=== PATIENT | male | born 1960 | race African-American/Black ===

== ENCOUNTER 2023-04-11 10:43 | Observation (INO) ==
--- NOTE | 2023-04-08 12:41 | Anesthesiology Consultation ---
Date of Service April 08, 2023 Assessment & Plan (1) Encounter for pre-operative examination: Chart Review Chart Review: Acceptable Risk for Surgery (pending anestehsia evaluation stat DOS and anesthesiologist review of unconfirmed EKG ) and Patient NOT seen in Pre Admission Testing - Discussed case with Dr. Tan and Dr. Levine- due to patient residing in [facility]- he will need re-assessed and evaluated DOS to see if he can proceed with surgery as planned (hx of chest pain with presumed negative stress test 12/2021) (Surgeon's office informed) - Check BSG AM DOS -COVID screening: Per PAT nursing assessment on 04/08/23. Pt resides at [facility]. No known COVID-19 positive contacts or current COVID-19 related symptoms. Travel screen negative. Preop Covid testing 04/05/23= negative. Covid test will be 6 days old by DOS- will order Sloan for DOS History Surgery Operation Date: 04/11/23 11:20 Proposed Procedures p Transurethral Resection Prostate - Deshaun Branham DO Height/Weight Height: 5 ft 7 in Weight: 129.727 kg Allergies Allergy/AdvReac Type Severity Reaction Status Date / Time No Known Allergies Allergy Verified 04/08/23 11:29 Medications Home Medications Medication Instructions Recorded Confirmed Last Taken acetaminophen 300 mg-codeine 30 mg 2 tab PO BID 04/08/23 04/08/23 Unknown tablet amlodipine 10 mg tablet 10 mg PO DAILY 04/08/23 04/08/23 Unknown aspirin 81 mg capsule 81 mg PO DAILY 04/08/23 04/08/23 Unknown atorvastatin 40 mg tablet 40 mg PO HS 04/08/23 04/08/23 Unknown carboxymethylcellulose sodium 1 % 1 drp ophthalmic (eye) QID 04/08/23 04/08/23 Unknown eye drops (Artificial Tears (carboxymethylcellulose)) chlorthalidone 50 mg tablet 50 mg PO DAILY 04/08/23 04/08/23 Unknown cholecalciferol (vitamin D3) 25 25 mcg PO DAILY 04/08/23 04/08/23 Unknown mcg (1,000 unit) capsule (Vitamin D3) finasteride 5 mg tablet 5 mg PO DAILY 04/08/23 04/08/23 Unknown insulin glargine 100 unit/mL 40 unit subcut BID 04/08/23 04/08/23 Unknown subcutaneous solution insulin regular human 100 unit/mL 0 - 12 sliding scale dose subcut 04/08/23 04/08/23 Unknown injection solution (Novolin R USEASDIRECTD Regular U-100 Insulin) isosorbide mononitrate 30 mg 30 mg PO DAILY 04/08/23 04/08/23 Unknown tablet,extended release 24 hr levothyroxine 137 mcg tablet 137 mcg PO QAM 04/08/23 04/08/23 Unknown lifitegrast 5 % eye drops in a 1 drp ophthalmic (eye) BID 04/08/23 04/08/23 Unknown dropperette (Xiidra) lisinopril 40 mg tablet 40 mg PO DAILY 04/08/23 04/08/23 Unknown metformin 1,000 mg tablet 1,000 mg PO BID 04/08/23 04/08/23 Unknown nitroglycerin 0.4 mg sublingual 0.4 mg sublingual UD PRN Chest Pain 04/08/23 04/08/23 Unknown tablet olopatadine 0.2 % eye drops 1 drp ophthalmic (eye) DAILY 04/08/23 04/08/23 Unknown omeprazole 20 mg tablet,delayed 20 mg PO DAILY 04/08/23 04/08/23 Unknown release tamsulosin 0.4 mg capsule 0.4 mg PO DAILY 04/08/23 04/08/23 Unknown Past Medical History Medical History (Updated 04/08/23 @ 12:44 by Nata Lawrence PA-C) BPH (benign prostatic hyperplasia) Chronic rhinitis Diabetes Dry eye syndrome GERD (gastroesophageal reflux disease) HTN (hypertension) Hx of chest pain Stress test 12/2021 Hyperlipemia Hypothyroid Inmate in correctional facility [facility] Low back pain Neuropathy Sleep apnea Vitamin D deficiency Xerosis cutis Past Surgical History Surgical History No history of previous surgery Social History Smoking Status: Unknown if ever smoked Do You Dip or Chew Tobacco: No ([facility]) Hx Alcohol Use: No ([facility]) Hx Substance Use: No ([facility]) substance use type: does not use Testing Laboratory Results 03/25/23= WBC: 8.66 H/H: 14.9/44.8 PLATELETS: 277 SODIUM: 138 POTASSIUM: 3.9 CHLORIDE: 99 CO2: 31 BUN: 10 CREATININE: 0.99 GLUCOSE: 222 TSH: 15.242 UA: Trace protin, 4+ glucose, URINE CULTURE: Multiple organisms consistent with urethral jose carlos present at >10,000 CFU/ml; No predominant organism present, no further testing performed Electrocardiogram Date: 03/10/23 Sinus rhythm with occasional PVCs at 80 bpm unconfirmed- will need reviewed by anesthesiologist DOS Chest X-Ray Date: 12/24/22 Findings: + NAD Stress Test Date: 01/10/22 Type: nuclear SUMMARY: 1. Mild, reversible inferior perfusion defect consistent with a small amount of single-vessel (PDA) ischemia versus attenuation artifact. 2. Normal LV size and function. LVEF 60% with no regional wall motion abnormalities. 3. Non-diagnostic stress ECG due to inability to reach target HR with Lexiscan. 4. Overall findings are low-risk for future cardiac events. (Per 04/02/22 progress note from [facility]- patient had episode of dizziness, SOB and mild left sided CP after using walker to ambulate to gym. PMH KS. Recent stress test WNL. Did not have nitro for CP. Symptoms resolved with rest. Recommend eating small snack before exercise and not over exerting himself.)
[~2023-04-11 10:43] MED LIST: LR 15ML/HR IV SCH; MISSING Provider Signature on ORDER(s) SCH
--- NOTE | 2023-04-11 11:01 | History & Physical Report ---
Date of Service April 11, 2023 Assessment & Plan (1) BPH w urinary obs/LUTS: (2) Hematuria, gross: (3) Dysuria: Plan Risks and benefits discussed at length for procedure. These include bleeding, infection, injury to surrounding tissues or organs, and risks associated with anesthesia. Patient states understanding and agrees to proceed. Will sign consent and proceed. plan for TURP History of Present Illness Primary Care Provider: NO PCP Patient here for procedure. No changes in medical issues. No major changes in urinary issues. Continued issues and concerns. No change in pain or discomfort. No severe fevers or chills. No chest pain or shortness of breath. Risks and benefits discussed at length for procedure. These include bleeding, infection, injury to surrounding tissues or organs, and risks associated with anesthesia. Patient and/or family states understanding and agrees to proceed. Consent and supporting information completed. Allergies Allergy/AdvReac Type Severity Reaction Status Date / Time No Known Allergies Allergy Verified 04/11/23 10:57 Home Medications Medication Instructions Recorded Confirmed Type acetaminophen 300 mg-codeine 30 mg 2 tab PO BID 04/08/23 04/08/23 History tablet amlodipine 10 mg tablet 10 mg PO DAILY 04/08/23 04/08/23 History aspirin 81 mg capsule 81 mg PO DAILY 04/08/23 04/08/23 History atorvastatin 40 mg tablet 40 mg PO HS 04/08/23 04/08/23 History carboxymethylcellulose sodium 1 % 1 drp ophthalmic (eye) QID 04/08/23 04/08/23 History eye drops (Artificial Tears (carboxymethylcellulose)) chlorthalidone 50 mg tablet 50 mg PO DAILY 04/08/23 04/08/23 History cholecalciferol (vitamin D3) 25 25 mcg PO DAILY 04/08/23 04/08/23 History mcg (1,000 unit) capsule (Vitamin D3) finasteride 5 mg tablet 5 mg PO DAILY 04/08/23 04/08/23 History insulin glargine 100 unit/mL 40 unit subcut BID 04/08/23 04/08/23 History subcutaneous solution insulin regular human 100 unit/mL 0 - 12 sliding scale dose subcut 04/08/23 04/08/23 History injection solution (Novolin R USEASDIRECTD Regular U-100 Insulin) isosorbide mononitrate 30 mg 30 mg PO DAILY 04/08/23 04/08/23 History tablet,extended release 24 hr levothyroxine 137 mcg tablet 137 mcg PO QAM 04/08/23 04/08/23 History lifitegrast 5 % eye drops in a 1 drp ophthalmic (eye) BID 04/08/23 04/08/23 History dropperette (Xiidra) lisinopril 40 mg tablet 40 mg PO DAILY 04/08/23 04/08/23 History nitroglycerin 0.4 mg sublingual 0.4 mg sublingual UD PRN Chest Pain 04/08/23 04/08/23 History tablet olopatadine 0.2 % eye drops 1 drp ophthalmic (eye) DAILY 04/08/23 04/08/23 History omeprazole 20 mg tablet,delayed 20 mg PO DAILY 04/08/23 04/08/23 History release tamsulosin 0.4 mg capsule 0.4 mg PO DAILY 04/08/23 04/08/23 History Past Med/Surg History Medical History BPH (benign prostatic hyperplasia) Chronic rhinitis Diabetes Dry eye syndrome GERD (gastroesophageal reflux disease) HTN (hypertension) Hx of chest pain Stress test 12/2021 Hyperlipemia Hypothyroid Inmate in [facility] facility [facility] Low back pain Neuropathy Sleep apnea Vitamin D deficiency Xerosis cutis Surgical History No history of previous surgery Social History Smoking Status: Unknown if ever smoked Second Hand Exposure: No; Do You Dip or Chew Tobacco: No ([facility]); Tobacco Cessation Education Requested by Patient: No Hx Alcohol Use: No ([facility]) Hx Substance Use: No ([facility]) Preferred Language: Kyrgyz Communication Ability: Effective Communication Ability Comment: [facility] Restaurant Server Required: No Beliefs That Will Affect Care: None Current Living Situation: Other Current Living Situation Comment: [facility] Other Information That Helps Us Care for You: No Feels Safe at Home: Yes Safety Concerns: Feels Safe At This Time Review of Systems All systems reviewed & are unremarkable except as noted in HPI & below Physical Exam Physical Exam: General: Alert/Arousable. No Acute illness. . HEENT: Inspection normal. Normal inspection of face. Normal inspection of neck. Psychologic: Normal affect/No change in mentation. Respiratory: No use of accessory muscles. No respiratory changes or exacerbation or changes with tachypnea or dyspnea. Cardiovascular: No tachycardia Skin: [place] and Dry. No new rashes or visible lesions. Abdomen: Normal inspection. No guarding. PG Care Time/CCT Total # of Minutes Spent Total Time Spent with Patient: Total time spent is greater than 50% in coordination of care (as documented) at patient's floor/unit and/or counseling patient: Coding Level of Care Code None Diagnoses BPH w urinary obs/LUTS N40.1; N13.8 Hematuria, gross R31.0 Dysuria R30.0
[2023-04-11] MEDS ORDERED: INSULIN HUMAN REGULAR SC ONE (11:28)
[2023-04-11] MEDS ORDERED: NovoLIN-R INSULIN PER UNIT CHARGE ONE ×2 (11:28→11:31)
[2023-04-11] MEDS ORDERED: fentaNYL citrate PF 100 MCG/2 ML VIAL ONE ×3 (12:57→14:12)
[2023-04-11] MEDS ORDERED: MIDAZOLAM HCL 1 MG/ML 2ML VIAL ONE (12:57)
[2023-04-11] MEDS ORDERED: PROPOFOL IV EMULSION 10 MG/ML 20 ML VIAL IV ONE (13:05)
[2023-04-11] MEDS ORDERED: LIDOCAINE 2% 2 ML VIAL/AMP(20MG/ML) INFIL ONE (13:05)
[2023-04-11] MEDS ORDERED: ONDANSETRON INJ 2 MG/ML 2 ML VIAL ONE (13:05)
[2023-04-11] MEDS ORDERED: DEXAMETHASONE SOD INJ 4 MG/ML VIAL ONE (13:05)
[2023-04-11] MEDS ORDERED: GLYCOPYRROLATE 0.2 MG/ML VIAL ONE (13:05)
[2023-04-11] MEDS ORDERED: KETOROLAC 30 MG/ML VIAL ONE (13:32)
--- NOTE | 2023-04-11 13:41 | Operative Report ---
PG Post Operative Report Pre & Post Diagnosis Operation Date: 04/11/23 12:35 Pre-Op Diagnosis: Benign Prostatic Hyperplasis with Urinary Obstruction Post-Op Diagnosis: Benign Prostatic Hyperplasis with Urinary Obstruction I identified the patient and participated in the time-out.: Yes Procedure Operation Date: 04/11/23 12:35 Actual Procedures p Transurethral Resection of Prostate(Not Applicable) - Deshaun Branham DO Surgeon Deshaun Branham, II, DO Surgical Garment Inspector None Estimated Blood Loss 10 Findings Consistent with Post-Op Diagnosis Extremely Large Median lobe of Prostate with obstruction. Specimens Prostate adenoma. Drains [address] Anesthesia Type General Complications none Disposition Disposition: Recovery Room Indications Patient with obstruction due to prostate enlargement. Risks and benefits discussed at length. Description of Procedure Patient was consented and brought back to the operating room. Patient was placed under anesthesia in the supine position and moved to the dorsal lithotomy position. Patient was prepped and draped in the regular sterile fashion. A time out was completed. A 30degree Cystoscope was placed into the bladder and the entire bladder was examined. The UO's were identified as well as the bladder neck, trigone, dome, and the other important landmarks. The prostatic urethra and large lobes/adenoma was assessed and the veru and bladder neck identified and area/size was assessed. The patient had a massive median lobe causing severe obstruction. The lateral lobes were also enlarged. The resection scope was placed and the fine bipolar loop was selected. Starting at the 5 and 7 o'clock positions, a channel was created from bladder neck to the veru. The large ball-like median lobe was then fully resected. Once resected, the area was fulgurated to control any bleeding. the 1 and 11 o'clock positions were then resected to capsule fibers. This was then resected down to the posterior channel. Once resected bilaterally the edges were assessed and all bleeding controlled. The Specimen was removed and sent for analysis. The resection bed and any bleeding areas were fulgurated/cauterized and the entire area inspected. All bleeding was controlled. The bladder was inspected a final time. The bladder was emptied and irrigated. All specimen and debris was removed. The scope was removed with the bladder partially full. A catheter was placed and balloon elevated. This was easily irrigated. The patient was cleaned, aroused from anesthesia, and transferred to the pacu in stable condition having tolerated the procedure well with no complications. I was present and participated in all aspects of the procedure. The patient will be monitored in the PACU until transferred. Plan to monitor overnight. Barber to be removed in approx 7-10 days once back to facility. I attest to the content of the Intraoperative Record and any orders documented therein. Any exceptions are noted below.
[2023-04-11] MEDS: fentaNYL citrate PF 100 MCG/2 ML VIAL IV PRN ×3 (14:12→14:22)
[2023-04-11] MEDS ORDERED: ATROPINE SULFATE 0.1 MG/ML 10ML SYR IV PRN (14:15)
[2023-04-11] MEDS ORDERED: ONDANSETRON INJ 2 MG/ML 2 ML VIAL IV PRN ×2 (14:15→15:38)
[2023-04-11] MEDS ORDERED: ePHEDrine sulfate 50 MG/ML AMP IV PRN (14:15)
--- NOTE | 2023-04-11 15:09 | Anesthesiology Progress Note ---
Date of Service April 11, 2023 Anesthesia Post Procedure Vital Signs Vital Signs: Temp Pulse Resp BP Pulse Ox O2 Del Method O2 Flow Rate 04/11/23 14:45 97.5 F L 81 16 130/94 95 Nasal Cannula 4 04/11/23 14:40 97.5 F L 86 16 140/95 95 Nasal Cannula 4 04/11/23 14:30 88 16 146/88 H 95 Oxymask 5 04/11/23 14:20 88 16 141/101 H 95 Oxymask 5 04/11/23 14:10 86 16 134/102 H 95 Oxymask 5 04/11/23 14:00 86 16 148/95 H 95 Oxymask 5 04/11/23 13:53 98.1 F 88 18 153/105 H 93 Oxymask 5 04/11/23 11:18 98.1 F 93 H 20 141/119 H 97 Room Air Transfer of Care Handoff Completed per policy Notes Mental Status: alert / awake / arousable and participated in evaluation Patient Amnestic to Procedure: Yes Nausea / Vomiting: adequately controlled Pain: adequately controlled Airway Patency, RR, SpO2: stable & adequate BP & HR: stable & adequate Hydration State: stable & adequate Anesthetic Complications: no major complications apparent and Pt Satisfied with anesthetic care
[2023-04-11] MEDS ORDERED: CARBOXYMETHYLCELLULOSE SODIUM 1% OP SCH (15:38)
[2023-04-11] MEDS ORDERED: NITROGLYCERIN SL 0.4 MG/TAB TAB SL PRN (15:38)
[2023-04-11] MEDS ORDERED: oxyCODONE/ACETAMINOPHEN 5mg/325mg TAB PO PRN (15:38)
[2023-04-11] MEDS ORDERED: NovoLIN-R INSULIN PER UNIT CHARGE SQ SCH (15:38)
[2023-04-11] MEDS ORDERED: oxyBUTYnin chloride 5 MG TAB PO PRN (15:38)
[2023-04-11] MEDS ORDERED: PHENAZOPYRIDINE HCL 200 MG TAB PO PRN (15:38)
[2023-04-11] MEDS ORDERED: ARTIFICIAL TEARS OP PRN (15:46)
[2023-04-11] MEDS: MoRPHine SULFATE 2 MG/ML CARP IV PRN (16:06)
[2023-04-11] MEDS: SODIUM CHLORIDE 0.9% 1000ML 1,000 ML IV SCH (16:06)
[2023-04-11] MEDS: INSULIN ASPART PER UNIT CHARGE SC SCH ×2 (17:23→20:22)
[2023-04-11 18:55] LABS: Basophils # (auto) 0.02 K/uL (0-0.2); Basophils % (auto) 0.2 %; Hematocrit (blood only) 42.1 % (42.0-52.0); Hemoglobin 14.7 g/dl (14.0-18.0); Immature Granulocytes # (auto) 0.05 K/uL (0.01-0.20); Immature Granulocytes % (auto) 0.5 %; Lymphocytes # (auto) 1.26 K/uL (1.2-3.4); Lymphocytes % (auto) 13.6 %; Mean Corpuscular Hgb Conc 34.9 g/dL (32.0-36.0); Mean Corpuscular Volume 85.9 fL (80.0-100.0); Mean Platelet Volume 11.8 fL (9.4-12.4); Monocytes # (auto) 0.11 K/uL (0.11-0.59); Monocytes % (auto) 1.2 %; Neutrophils # (auto) 7.82 K/uL (1.40-6.50); Neutrophils % (auto) 84.5 %; Platelet Count 248 K/uL (130-400); RDW Coefficient of Variation 12.2 % (11.5-14.5); RDW Standard Deviation 38.6 fL (36.4-46.3); White Blood Count 9.26 K/ul (4.8-10.8)
[2023-04-11 19:22] LABS: Albumin Level 3.8 gm/dl (3.4-5.0); BUN Creatinine Ratio 8.3 (10-20); Bilirubin,Total 0.6 mg/dl (0.2-1.0); Calcium 8.7 mg/dl (8.6-10.3); Est GFR (African American) 65.9 ml/min; Est GFR (Non-African American) 56.9 ml/min; Potassium 4.1 mmol/L (3.5-5.1); Total Protein 7.8 gm/dl (6.0-8.3)
[2023-04-11] MEDS: LANTUS PER UNIT CHARGE SQ SCH (20:23)
[2023-04-11] MEDS: ceFAZolin 2000MG 2,000 MG/15 ML SYR IV SCH (20:26)
[2023-04-11] MEDS: DOCUSATE SODIUM 100 MG CAP PO SCH (20:27)
[2023-04-11] MEDS ORDERED: ATORVASTATIN 40 MG TAB PO SCH (21:00)
[2023-04-12] MEDS: SODIUM CHLORIDE 0.9% 1000ML 1,000 ML IV SCH (03:27)
[2023-04-12] MEDS: ceFAZolin 2000MG 2,000 MG/15 ML SYR IV SCH ×2 (05:59→12:16)
[2023-04-12] MEDS: MoRPHine SULFATE 2 MG/ML CARP IV PRN (06:00)
[2023-04-12] MEDS ORDERED: LEVOTHYROXINE SODIUM 137 MCG TABLET PO SCH (06:30)
--- NOTE | 2023-04-12 08:14 | Urology Progress Note ---
Date of Service April 12, 2023 Assessment & Plan (1) BPH w urinary obs/LUTS: Plan - Pt POD#1 s/p TURP with Dr. Branham. - Hospital medicine consulted postoperatively due to comorbidities, appreciate recommendations. - Doing well, progressing as expected. - Afebrile and hemodynamically stable. - Lab work reviewed -white count 13.75, hemoglobin 14.6, creatinine 1.13. - 3 way Barber catheter intact, patent and draining clear urine with CBI on slow. - CBI clamped @0800, nursing aware - will reassess later this AM. - Maintain Barber catheter. - Anticipate discharge with Barber catheter later today presuming urine appropriate and he continues to progress as expected. - Expected clinical course reviewed, all questions answered. Patient reassessed this afternoon. Remains afebrile and hemodynamically stable. Urine remains clear off CBI. Maintain Barber catheter. Continue supportive care and pain management. Anticipate discharge back to [facility] with Barber catheter later today pending hospital medicine recommendations. Admission and Anticipated Discharge Date Admission Date: April 11, 2023 Subjective Patient examined at bedside this AM. Awake, resting in bed on arrival. No acute distress. X2 guards at bedside. Barber catheter intact, draining clear urine with CBI on slow. Patient does report some blood around catheter insertion site. Denies fevers, chills, nausea, vomiting. Reports some mild suprapubic discomfort. Tolerating diet. Review of Systems Constitutional: as per Subjective / HPI Gastrointestinal: as per Subjective / HPI Genitourinary: + as per Subjective / HPI Physical Exam Constitutional: well developed and well nourished; no acute distress Respiratory: normal respiratory effort; no respiratory distress and no labored breathing Gastrointestinal (Abdomen): Mild suprapubic tenderness with palpation Skin: No visible rashes or lesions to exposed skin areas Neurologic: moves all extremities and awake Psychiatric: A+Ox3, euthymic affect Genitourinary: Barber catheter intact Results & Data Vital Signs (Past 12 Hours) Vital Signs Temp Pulse Resp BP Pulse Ox O2 Del Method 04/12/23 07:12 36.5 C 75 20 124/85 92 Room Air 04/12/23 02:22 36.4 C L 82 18 131/84 93 Room Air 04/11/23 20:30 Room Air 04/11/23 22:10 36.6 C 85 18 146/88 H 96 Room Air PG Care Time/CCT Total # of Minutes Spent Total Time Spent with Patient: Total time spent is greater than 50% in coordination of care (as documented) at patient's floor/unit and/or counseling patient: Coding Level of Care Code None Diagnoses BPH w urinary obs/LUTS N40.1; N13.8
[2023-04-12] MEDS: DOCUSATE SODIUM 100 MG CAP PO SCH (08:32)
[2023-04-12] MEDS: INSULIN ASPART PER UNIT CHARGE SC SCH ×3 (08:39→16:49)
[2023-04-12] MEDS: LANTUS PER UNIT CHARGE SQ SCH (08:40)
[2023-04-12] MEDS ORDERED: ISOSORBIDE MONO EXTENDED REL 30 MG TABCR PO SCH (09:00)
[2023-04-12] MEDS ORDERED: CHLORTHALIDONE 25 MG TAB PO SCH (09:00)
[2023-04-12] MEDS ORDERED: lisinopril 40 MG TAB PO SCH (09:00)
[2023-04-12] MEDS ORDERED: OLOPATADINE 0.2% OP SCH (09:00)
[2023-04-12] MEDS ORDERED: CHOLECALCIFEROL 1,000 UNITS 25 MCG TAB PO SCH (09:00)
[2023-04-12] MEDS ORDERED: amLODIPine BESYLATE 5 MG TAB PO SCH (09:00)
[2023-04-12] MEDS ORDERED: PANTOprazole 40 MG TAB PO SCH (09:00)
--- NOTE | 2023-04-12 09:59 | Hospitalist Consultation ---
Date of Consultation April 12, 2023 Assessment & Plan (1) BPH w urinary obs/LUTS: S/p TURP Postoperative management as per urology no blood loss, renal function normal on labs doing well with pain control discharge to [facility] w/ Barber in place (2) Diabetes: With hyperglycemia overnight and this morning Recommend increasing Lantus to 42 units bid and will tighten down NovoLin R sliding scale at [facility] and recommend increasing to qac from bid also recommend 1800kCal diabetic diet for him at [facility] (3) HTN (hypertension): BPs are normal Continue home chlorthalidone, isosorbide, lisinopril (4) Sleep apnea: Unclear if on CPAP at the [facility] (5) Neuropathy: Noted, not on medications Likely related to diabetes (6) Hypothyroid: Check TSH-pending at time of discharge Continue home levothyroxine (7) Hyperlipemia: No acute issues Continue home atorvastatin (8) GERD (gastroesophageal reflux disease): continue PPI (9) Vitamin D deficiency: continue vit D supplement f/u levels as outpt Plan DVT prophylaxis-SCDs Disposition-medically stable for discharge back to the [facility] today. Discussed care with Urology [facility]CUS [facility] History of Present Illness Reason for Consultation: Diabetes, HTN management Requesting Physician: Dr. Branham Attending Physician: Deshaun Branham, II, DO History of Present Illness This patient is a 62-year-old male with a history of DM2, HTN, BPH, hypothyroidism, GERD, neuropathy, RUPERTO, vitamin D deficiency, Dry eye syndrome, chronic rhinitis, and stable angina who was admitted to the hospital s/p TURP with Dr. Branham on 04/11/2023. The hospital service is consulted to help manage his medical issues including diabetes and HTN. Overnight he had some hyperglycemia which is being treated with NovoLog insulin in addition to his usual Lantus dosing. His continuous bladder irrigation was clamped this morning by urology and now has been discontinued. He reports some blood around the Barber earlier today with straining to have a BM but none since then. Denies CP, SOB, other issues. Is frustrated about his uncontrolled diabetes. Diet at [facility] is a lot of carbs and he only gets short acting insulin twice a day with meals. Allergies Allergy/AdvReac Type Severity Reaction Status Date / Time No Known Allergies Allergy Verified 04/11/23 10:57 Home Medications Medication Instructions Recorded Confirmed Type acetaminophen 300 mg-codeine 30 mg 2 tab PO BID 04/08/23 04/11/23 History tablet amlodipine 10 mg tablet 10 mg PO DAILY 04/08/23 04/11/23 History aspirin 81 mg capsule 81 mg PO DAILY 04/08/23 04/11/23 History atorvastatin 40 mg tablet 40 mg PO HS 04/08/23 04/11/23 History carboxymethylcellulose sodium 1 % 1 drp ophthalmic (eye) QID 04/08/23 04/11/23 History eye drops (Artificial Tears (carboxymethylcellulose)) chlorthalidone 50 mg tablet 50 mg PO DAILY 04/08/23 04/11/23 History cholecalciferol (vitamin D3) 25 25 mcg PO DAILY 04/08/23 04/11/23 History mcg (1,000 unit) capsule (Vitamin D3) finasteride 5 mg tablet 5 mg PO DAILY 04/08/23 04/11/23 History insulin glargine 100 unit/mL 40 unit subcut BID 04/08/23 04/11/23 History subcutaneous solution insulin regular human 100 unit/mL 0 - 12 sliding scale dose subcut 04/08/23 04/11/23 History injection solution (Novolin R USEASDIRECTD Regular U-100 Insulin) isosorbide mononitrate 30 mg 30 mg PO DAILY 04/08/23 04/11/23 History tablet,extended release 24 hr levothyroxine 137 mcg tablet 137 mcg PO QAM 04/08/23 04/11/23 History lifitegrast 5 % eye drops in a 1 drp ophthalmic (eye) BID 04/08/23 04/11/23 History dropperette (Xiidra) lisinopril 40 mg tablet 40 mg PO DAILY 04/08/23 04/11/23 History nitroglycerin 0.4 mg sublingual 0.4 mg sublingual UD PRN Chest Pain 04/08/23 04/11/23 History tablet olopatadine 0.2 % eye drops 1 drp ophthalmic (eye) DAILY 04/08/23 04/11/23 History omeprazole 20 mg tablet,delayed 20 mg PO DAILY 04/08/23 04/11/23 History release oxybutynin chloride 5 mg tablet 5 mg PO Q6H PRN bladder spasms #15 04/12/23 Rx tabs phenazopyridine 200 mg tablet 200 mg PO TID PRN bladder pain #12 04/12/23 Rx (Pyridium) tabs Patient History Medical History BPH (benign prostatic hyperplasia) Chronic rhinitis Diabetes Dry eye syndrome GERD (gastroesophageal reflux disease) HTN (hypertension) Hx of chest pain Stress test 12/2021 Hyperlipemia Hypothyroid Inmate in [facility] facility [facility] Low back pain Neuropathy Sleep apnea Vitamin D deficiency Xerosis cutis Surgical History History of lumbar fusion S/P insertion of spinal cord stimulator Family History Other Family history non-contributory Social History Smoking Status: Unknown if ever smoked Second Hand Exposure: No; Do You Dip or Chew Tobacco: No ([facility]); Tobacco Cessation Education Requested by Patient: No Hx Alcohol Use: No ([facility] Banks) Hx Substance Use: No ([facility] Banks) Preferred Language: Welsh Communication Ability: Effective Communication Ability Comment: [facility] Banks Early Childhood Special Educator Required: No Beliefs That Will Affect Care: None Current Living Situation: Other Current Living Situation Comment: [facility] Other Information That Helps Us Care for You: No Feels Safe at Home: Yes Safety Concerns: Feels Safe At This Time Assistive Devices: None Review of Systems Review of Systems: All systems reviewed & are unremarkable except as noted in HPI & below Physical Exam Constitutional: WD/WN, vitals as above + morbidly obese Neck: trachea midline, no thyromegaly Respiratory: normal respiratory effort, lungs clear to auscultation Cardiovascular: RRR, no murmur, no edema Chest (Breasts): Chest: normal inspection of chest Gastrointestinal (Abdomen): normal bowel sounds, soft, nontender, no hepatosplenomegaly Musculoskeletal: Extremities: extremities normal to inspection; no cyanosis and no clubbing Skin: no rashes, warm and dry Neurologic: moves all extremities and awake; no focal motor deficits Psychiatric: A+Ox3, euthymic affect Genitourinary: Barber in place with clear yellow urine Lymphatic: no lymphedema Results & Data Results & Data Vital Signs (Past 12 Hours) Vital Signs Temp Pulse Resp BP Pulse Ox O2 Del Method 04/12/23 07:12 36.5 C 75 20 124/85 92 Room Air 04/12/23 02:22 36.4 C L 82 18 131/84 93 Room Air 04/11/23 22:10 36.6 C 85 18 146/88 H 96 Room Air Laboratory Results CBC, BMP, HgbA1C reviewed PG Care Time/CCT Total # of Minutes Spent Total Time Spent with Patient: Total time spent is greater than 50% in coordination of care (as documented) at patient's floor/unit and/or counseling patient: Coding Level of Care Code 94402 IN/OBS CONSULT LVL 4,60M Diagnoses BPH w urinary obs/LUTS N40.1; N13.8 Diabetes E11.9 HTN (hypertension) I10 Sleep apnea G47.30 Neuropathy G62.9 Hypothyroid E03.9 Hyperlipemia E78.5 GERD (gastroesophageal reflux disease) K21.9 Vitamin D deficiency E55.9
[2023-04-12 11:12] LABS: Estimated Average Glucose 255 mg/dl; Hemoglobin A1C 10.5 % (4.5-5.6)
[2023-04-12 11:54] LABS: Calcium 8.7 mg/dl (8.6-10.3); Creatinine Clr Calc Pharmacy 87.1 ml/min; Est GFR (African American) 80.3 ml/min; Est GFR (Non-African American) 69.3 ml/min; Potassium 3.6 mmol/L (3.5-5.1)
[2023-04-12 12:30] LABS: Hematocrit (blood only) 42.3 % (42.0-52.0); Hemoglobin 14.6 g/dl (14.0-18.0); Mean Corpuscular Hemoglobin 29.9 pg (25.0-34.0); Mean Corpuscular Hgb Conc 34.5 g/dL (32.0-36.0); Mean Corpuscular Volume 86.7 fL (80.0-100.0); Mean Platelet Volume 11.9 fL (9.4-12.4); Platelet Count 275 K/uL (130-400); RDW Coefficient of Variation 12.3 % (11.5-14.5); RDW Standard Deviation 38.9 fL (36.4-46.3); Red Blood Count 4.88 M/uL (4.70-6.10); White Blood Count 13.75 K/ul (4.8-10.8)
[2023-04-12] MEDS ORDERED: oxyBUTYnin chloride 5 MG TAB PO PRN (16:21)
[2023-04-12] MEDS ORDERED: oxyBUTYnin chloride 5 MG TAB PO SCH (16:27)
--- NOTE | 2023-04-13 16:23 | Discharge Summary ---
Date of Service April 13, 2023 Admission HPI Per Admitting Provider 62-year-old incarcerated male with a history of BPH who presents for TURP Admission Exam Per Admitting Provider General: Alert/Arousable. No Acute illness. . HEENT: Inspection normal. Normal inspection of face. Normal inspection of neck. Psychologic: Normal affect/No change in mentation. Respiratory: No use of accessory muscles. No respiratory changes or exacerbation or changes with tachypnea or dyspnea. Cardiovascular: No tachycardia Skin: [place] and Dry. No new rashes or visible lesions. Abdomen: Normal inspection. No guarding. Principal Diagnosis BPH with urinary obstruction Discharge Exam Constitutional well developed and well nourished; no acute distress Respiratory normal respiratory effort; no respiratory distress and no labored breathing Neurologic moves all extremities and awake Psychiatric A+Ox3, euthymic affect Genitourinary Barber catheter intact Discharge Data Allergies Allergy/AdvReac Type Severity Reaction Status Date / Time No Known Allergies Allergy Verified 04/11/23 10:57 Consultations 04/11/23 15:38 Consult Hospitalist Routine Procedures Performed Operation Date: 04/11/23 12:35 Actual Procedures p Transurethral Resection Prostate(Not Applicable) - Deshaun Branham, DO Hospital Course (1) BPH w urinary obs/LUTS: Plan - Pt POD#1 s/p TURP with Dr. Branham. - Hospital medicine consulted postoperatively due to comorbidities, appreciate recommendations. See note for details. - Doing well, progressing as expected. - Afebrile and hemodynamically stable. - Lab work reviewed -white count 13.75, hemoglobin 14.6, creatinine 1.13. - 3 way Barber catheter intact, patent and draining clear urine with CBI on slow. - CBI clamped @0800, nursing aware - will reassess later this AM. - Maintain Barber catheter. - Anticipate discharge with Barber catheter later today presuming urine appropriate and he continues to progress as expected. - Expected clinical course reviewed, all questions answered. Patient reassessed this afternoon. Remains afebrile and hemodynamically stable. Urine remains clear off CBI. Maintain Barber catheter. Continue supportive care and pain management. Anticipate discharge back to skilled nursing with Barber catheter later today pending hospital medicine recommendations. Total Time Total Time Spent Total Time Spent (In Minutes): 15 Discharge Plan Discharge Items [facility] Reason For Visit: Benign Prostatic Hyperplasis with Urinary Obstruct Discharge Diagnosis: BPH with urinary obstruction Hyperglycemia, uncontrolled diabetes mellitus Activity: Per Instructions section Non-emergency contact: Surgeon and Urologist Call non-emergency contact if: you have any medication questions, your symptoms worsen, your pain is worsening and you have a fever Follow-up/Referrals: Deshaun Branham, [Physician] - PCP,NO [Primary Care Provider] - Diet: Carb Consistent or DM2 Diet Comment: 1800kCal/day diabetic diet Addtl Attending Provider Instructions: Please call the urology office at [phone] with any questions or concerns, we are happy to assist you. The Barber catheter can be removed in 7-10 days. Recommend Pyridium and oxybutynin as needed for bladder pain and spasms. Recommend follow-up in the urology office with Dr. Branham in approximately 2-4 weeks. Tips for your recovery at home: Dont be alarmed by brownish or reddish blood or clots in your urine. This is a result of the procedure. This may occur off and on for weeks to months after the procedure but should continue to improve. Drink plenty of fluids during the day (enough to keep your urine very light colored). This will help keep a healthy flow of urine. Do not lift >25 lbs until your followup Avoid constipation. Please use a stool softener (Colace) for the first two weeks after your procedure if needed. If you go home with a catheter, please wash tubing where it enters your body twice daily with mild soap (Dove or Dial). Once your catheter is removed, expect some blood in your urine and some burning when you urinate. You should have an appointment to have this removed, if you do not please call our office to arrange. When to call [facility] at [phone]: Your urine contains heavy blood clots or your catheter stops draining You are constantly leaking urine Fever of 101F or higher, chills, nausea, or vomiting Your pain is not relieved with medication Addtl Packing And Wrapping Supervisor Provider Instructions: Please talk to your PCP about improving control of your diabetes. Your hemoglobin A1C here was quite high at 10.5%. Your insulin regimen needs to be adjusted and can consider adding on additional oral medications if available at the skilled nursing. You should be getting your Novolin R three times a day with meals rather than only twice a day. The sliding scale was adjusted upwards on your Novolin R. Your Lantus was increased to 42 units twice a day. You also should be on a 1800kCal/day diabetic diet. Pending Studies at Discharge: Yes (pathology from prostate; TSH) Stand-Alone Forms: My RECOMBINETICS, Smoking Cessation Skilled Items Patient informed of condition?: Yes DNR: No Discharge Level of Care: Other Communicable Disease: No Discharge Prognosis: Stable Lines: None Urinary Catheter: Yes Medications and DC Order Prescriptions: New phenazopyridine [Pyridium] 200 mg Tablet 200 mg PO TID PRN (Reason: bladder pain) Qty: 12 0RF oxybutynin chloride 5 mg Tablet 5 mg PO Q6H PRN (Reason: bladder spasms) Qty: 15 0RF Continued atorvastatin 40 mg Tablet 40 mg PO HS levothyroxine 137 mcg Tablet 137 mcg PO QAM isosorbide mononitrate 30 mg Tablet Extended Release 24 Hr 30 mg PO DAILY acetaminophen-codeine 300-30 mg Tablet 2 tab PO BID chlorthalidone 50 mg Tablet 50 mg PO DAILY amlodipine 10 mg Tablet 10 mg PO DAILY nitroglycerin 0.4 mg Tablet, Sublingual 0.4 mg sublingual UD PRN (Reason: Chest Pain) lisinopril 40 mg Tablet 40 mg PO DAILY finasteride 5 mg Tablet 5 mg PO DAILY cholecalciferol (vitamin D3) [Vitamin D3] 25 mcg (1,000 unit) Capsule 25 mcg PO DAILY olopatadine 0.2 % Drops 1 drp OPHTHALMIC (EYE) DAILY omeprazole 20 mg Tablet,Delayed Release (Dr/Ec) 20 mg PO DAILY Xiidra 5 % Dropperette 1 drp OPHTHALMIC (EYE) BID Rx Instructions: administer approximately 12 hours apart Artificial Tears (cmc) 1 % Drops 1 drp OPHTHALMIC (EYE) QID aspirin 81 mg Capsule 81 mg PO DAILY Changed insulin glargine 100 unit/mL Solution 42 unit SUBCUT BID Qty: 10 0RF Novolin R Regular U100 Insulin 100 unit/mL Solution 0 - 12 sliding scale dose SUBCUT .qac Qty: 10 0RF Rx Instructions: 151-200 4U, 201-250 6U, 251-300 8U, 301-350 10U, 351-400 12U, 401-450 14U. > 451 CALL MD. NEEDED - Admission Data Admit Date/Time: 04/11/23 12:38 Attending Provider: Deshaun Branham Admit Provider: Deshaun Branham Primary Care Provider: PCP,NO Other Providers: Bijal Thompson Other Interventions: Discharge Summary Assessment (RN) Last Done: 04/12/23 15:32 Coding Level of Care Code 42470 IN/OBS DISCH 30 MIN/LESS Diagnoses BPH w urinary obs/LUTS N40.1; N13.8
== END 2023-04-12 17:59 ==
LOC: ASU 10:43 → 3E 10:43
DX: R30.0 Dysuria; Z79.899 Other long term (current) drug therapy; N13.8 Other obstructive and reflux uropathy; N40.1 Benign prostatic hyperplasia with lower urinary tract symptoms; R31.9 Hematuria, unspecified; Z79.4 Long term (current) use of insulin; Z79.82 Long term (current) use of aspirin; E11.65 Type 2 diabetes mellitus with hyperglycemia; Z79.890 Hormone replacement therapy